=== PATIENT | female | born 1945 | race Caucasian/White ===

== ENCOUNTER 2021-11-18 10:46 | Inpatient (IN) | payer MEDICARE, OTHER ==
[2021-11-18] MEDS ORDERED: Sodium Chloride 0.9% 10 ML Syringe FLUSH PRN (10:48)
[2021-11-18] MEDS ORDERED: Sodium Chloride 0.9% 2.5 ML Syringe FLUSH PRN (10:48)
[2021-11-18] MEDS ORDERED: Sodium Chloride 0.9% 500 ML IV SCH (11:00)
[2021-11-18 12:18] LABS: BLOOD UREA NITROGEN,BUN 64 mg/dL (7.0-18.0); CARBON DIOXIDE,CO2 40.9 mmol/L (21.0-32.0); CHLORIDE,CL 100 mmol/L (98-107); GLUCOSE RANDOM 185 mg/dL (74-106); POTASSIUM,K 3.8 mmol/L (3.5-5.1); SODIUM,NA 143 mmol/L (136-145)
[2021-11-18 12:19] LABS: ESTIMATED GFR 52 mL/min (>60)
[2021-11-18] MEDS ORDERED: Glucagon,Human Recombinant 1 MG Vial IM PRN (17:23)
[2021-11-18] MEDS ORDERED: Magnesium Hydroxide 400 MG/5 ML Susp 30 ML Cup PO PRN (17:23)
[2021-11-18] MEDS ORDERED: 50% Dextrose in Water 50 ML Syringe IVPUSH PRN (17:23)
[2021-11-18] MEDS ORDERED: Levofloxacin/Dextrose 5%-Water 750 MG in Premix Bag 1 BAG IV SCH (17:30)
[2021-11-18] MEDS: Aspirin 325 MG Tab PO SCH (18:20)
[2021-11-18] MEDS: Levofloxacin/Dextrose 5%-Water 500 MG in Premix Bag 1 BAG IV SCH (19:44)
[2021-11-18] MEDS: atorvaSTATin 10 MG Tab PO SCH (21:17)
[2021-11-18] MEDS: Gabapentin 300 MG Cap PO SCH (21:17)
[2021-11-18] MEDS: Furosemide 80 MG Tab PO SCH (21:18)
[2021-11-18] MEDS: Pramipexole 0.25 MG Tab PO SCH (22:15)
[2021-11-19 06:45] LABS: HEMOGLOBIN A1C 7.4 %
[2021-11-19] MEDS: Levothyroxine 100 MCG Tab PO SCH (06:46)
[2021-11-19] MEDS: Gabapentin 300 MG Cap PO SCH ×3 (06:46→21:26)
[2021-11-19 06:53] LABS: CARBON DIOXIDE,CO2 43.7 mmol/L (21.0-32.0); POTASSIUM,K 3.2 mmol/L (3.5-5.1)
[2021-11-19] MEDS: Insulin Aspart 100 Units/ML 3 ML Pen SUBCUT SCH ×3 (06:54→16:20)
[2021-11-19] MEDS ORDERED: Potassium Chloride 20 MEQ Packet PO SCH (09:00)
[2021-11-19] MEDS: Aspirin 325 MG Tab PO SCH (09:25)
[2021-11-19] MEDS: Furosemide 80 MG Tab PO SCH (09:26)
[2021-11-19] MEDS: Citalopram 20 MG Tab PO SCH (09:26)
[2021-11-19] MEDS: Potassium Chloride 10% 20 MEQ/15 ML Soln 30 ML UD Cup PO SCH (09:26)
[2021-11-19] MEDS ORDERED: Potassium Chloride 20 MEQ Tab.ER PO ONE (12:09)
[2021-11-19] MEDS: Levofloxacin/Dextrose 5%-Water 500 MG in Premix Bag 1 BAG IV SCH (17:45)
[2021-11-19] MEDS: atorvaSTATin 10 MG Tab PO SCH (21:24)
[2021-11-19] MEDS: Pramipexole 0.25 MG Tab PO SCH (21:25)
[2021-11-20] MEDS ORDERED: Acetaminophen 325 MG Tab PO PRN (05:35)
[2021-11-20 05:53] LABS: POTASSIUM,K 3.7 mmol/L (3.5-5.1)
[2021-11-20] MEDS: Gabapentin 300 MG Cap PO SCH ×3 (06:26→21:04)
[2021-11-20] MEDS: Levothyroxine 100 MCG Tab PO SCH ×2 (06:26→08:04)
[2021-11-20] MEDS: Insulin Aspart 100 Units/ML 3 ML Pen SUBCUT SCH ×3 (07:06→16:35)
[2021-11-20] MEDS: Potassium Chloride 10% 20 MEQ/15 ML Soln 30 ML UD Cup PO SCH (08:01)
[2021-11-20] MEDS: Metolazone 5 MG Tab PO SCH (08:02)
[2021-11-20] MEDS: Aspirin 325 MG Tab PO SCH (08:02)
[2021-11-20] MEDS: Citalopram 20 MG Tab PO SCH (08:03)
[2021-11-20] MEDS: Levofloxacin/Dextrose 5%-Water 500 MG in Premix Bag 1 BAG IV SCH (17:52)
[2021-11-20] MEDS: Pramipexole 0.25 MG Tab PO SCH (21:04)
[2021-11-20] MEDS: atorvaSTATin 10 MG Tab PO SCH (21:05)
[2021-11-21] MEDS: Gabapentin 300 MG Cap PO SCH ×3 (06:47→21:17)
[2021-11-21] MEDS: Levothyroxine 100 MCG Tab PO SCH (06:47)
[2021-11-21] MEDS: Insulin Aspart 100 Units/ML 3 ML Pen SUBCUT SCH ×3 (06:51→16:57)
[2021-11-21 07:03] LABS: CARBON DIOXIDE,CO2 39.4 mmol/L (21.0-32.0); POTASSIUM,K 3.9 mmol/L (3.5-5.1)
[2021-11-21] MEDS: Potassium Chloride 10% 20 MEQ/15 ML Soln 30 ML UD Cup PO SCH (09:27)
[2021-11-21] MEDS: Aspirin 325 MG Tab PO SCH (09:27)
[2021-11-21] MEDS: Citalopram 20 MG Tab PO SCH (09:27)
[2021-11-21] MEDS: Lidocaine 5% 700 MG Patch TRDERM SCH (09:37)
[2021-11-21] MEDS: Acetaminophen 325 MG Tab PO SCH ×2 (14:12→21:18)
[2021-11-21] MEDS: Heparin Sodium 5,000 Units/ML Vial SUBCUT SCH (14:12)
[2021-11-21] MEDS: Furosemide 80 MG Tab PO SCH (15:05)
[2021-11-21] MEDS: Levofloxacin/Dextrose 5%-Water 500 MG in Premix Bag 1 BAG IV SCH (18:05)
[2021-11-21] MEDS: atorvaSTATin 10 MG Tab PO SCH (21:15)
[2021-11-21] MEDS: Pramipexole 0.25 MG Tab PO SCH (21:16)
[2021-11-22] MEDS: Heparin Sodium 5,000 Units/ML Vial SUBCUT SCH ×2 (00:37→13:03)
[2021-11-22 06:15] LABS: CARBON DIOXIDE,CO2 39.7 mmol/L (21.0-32.0); POTASSIUM,K 3.6 mmol/L (3.5-5.1)
[2021-11-22] MEDS: Gabapentin 300 MG Cap PO SCH ×3 (06:35→21:21)
[2021-11-22] MEDS: Acetaminophen 325 MG Tab PO SCH ×3 (06:35→21:24)
[2021-11-22] MEDS: Levothyroxine 100 MCG Tab PO SCH (06:36)
[2021-11-22] MEDS: Insulin Aspart 100 Units/ML 3 ML Pen SUBCUT SCH ×3 (07:36→18:03)
[2021-11-22] MEDS: Aspirin 325 MG Tab.EC PO SCH (08:18)
[2021-11-22] MEDS: Ferrous Sulfate 325 MG Tab PO SCH (08:19)
[2021-11-22] MEDS: Citalopram 20 MG Tab PO SCH (08:19)
[2021-11-22] MEDS: Potassium Chloride 10% 20 MEQ/15 ML Soln 30 ML UD Cup PO SCH (08:20)
[2021-11-22] MEDS: Lidocaine 5% 700 MG Patch TRDERM SCH (08:30)
[2021-11-22] MEDS: Furosemide 80 MG Tab PO SCH (11:06)
[2021-11-22] MEDS: Metolazone 5 MG Tab PO SCH (11:07)
[2021-11-22] MEDS: Nystatin Topical Powder 15 GM Bottle TOP SCH ×3 (11:58→18:41)
[2021-11-22] MEDS: Levofloxacin/Dextrose 5%-Water 500 MG in Premix Bag 1 BAG IV SCH (18:42)
[2021-11-22] MEDS: atorvaSTATin 10 MG Tab PO SCH (21:22)
[2021-11-22] MEDS: Pramipexole 0.25 MG Tab PO SCH (21:23)
[2021-11-23] MEDS: Nystatin Topical Powder 15 GM Bottle TOP SCH ×4 (00:04→17:30)
[2021-11-23] MEDS: Heparin Sodium 5,000 Units/ML Vial SUBCUT SCH ×2 (00:04→12:55)
[2021-11-23] MEDS: Gabapentin 300 MG Cap PO SCH ×3 (05:58→21:37)
[2021-11-23] MEDS: Levothyroxine 100 MCG Tab PO SCH ×2 (05:59→06:35)
[2021-11-23] MEDS: Acetaminophen 325 MG Tab PO SCH ×3 (05:59→21:40)
[2021-11-23] MEDS: Insulin Aspart 100 Units/ML 3 ML Pen SUBCUT SCH ×3 (06:35→17:30)
[2021-11-23 07:27] LABS: CARBON DIOXIDE,CO2 38.2 mmol/L (21.0-32.0); POTASSIUM,K 3.6 mmol/L (3.5-5.1)
[2021-11-23] MEDS: Citalopram 20 MG Tab PO SCH (09:13)
[2021-11-23] MEDS: Ferrous Sulfate 325 MG Tab PO SCH (09:13)
[2021-11-23] MEDS: Aspirin 325 MG Tab.EC PO SCH (09:13)
[2021-11-23] MEDS: Potassium Chloride 10% 20 MEQ/15 ML Soln 30 ML UD Cup PO SCH (09:13)
[2021-11-23] MEDS: Febuxostat [Febuxostat] 40 MG Tablet PO SCH (09:18)
[2021-11-23] MEDS: Lidocaine 5% 700 MG Patch TRDERM SCH (09:19)
[2021-11-23] MEDS: atorvaSTATin 10 MG Tab PO SCH (21:41)
[2021-11-23] MEDS: Pramipexole 0.25 MG Tab PO SCH (21:42)
[2021-11-24] MEDS: Heparin Sodium 5,000 Units/ML Vial SUBCUT SCH ×2 (00:11→12:06)
[2021-11-24] MEDS: Nystatin Topical Powder 15 GM Bottle TOP SCH ×4 (00:18→19:10)
[2021-11-24] MEDS: Gabapentin 300 MG Cap PO SCH ×3 (06:24→21:13)
[2021-11-24] MEDS: Acetaminophen 325 MG Tab PO SCH ×3 (06:25→21:12)
[2021-11-24 06:28] LABS: CARBON DIOXIDE,CO2 39.7 mmol/L (21.0-32.0)
[2021-11-24] MEDS: Levothyroxine 100 MCG Tab PO SCH (06:31)
[2021-11-24] MEDS: Insulin Aspart 100 Units/ML 3 ML Pen SUBCUT SCH ×3 (06:52→19:11)
[2021-11-24] MEDS: Ferrous Sulfate 325 MG Tab PO SCH (08:35)
[2021-11-24] MEDS: Citalopram 20 MG Tab PO SCH (08:35)
[2021-11-24] MEDS: Potassium Chloride 10% 20 MEQ/15 ML Soln 30 ML UD Cup PO SCH (08:36)
[2021-11-24] MEDS: Aspirin 325 MG Tab.EC PO SCH (08:36)
[2021-11-24] MEDS: Lidocaine 5% 700 MG Patch TRDERM SCH (08:39)
[2021-11-24] MEDS: Febuxostat [Febuxostat] 40 MG Tablet PO SCH ×2 (08:40→13:09)
[2021-11-24] MEDS: predniSONE 20 MG Tab PO SCH (12:59)
[2021-11-24] MEDS: atorvaSTATin 10 MG Tab PO SCH (21:14)
[2021-11-24] MEDS: Pramipexole 0.25 MG Tab PO SCH (21:15)
[2021-11-25] MEDS: Heparin Sodium 5,000 Units/ML Vial SUBCUT SCH ×2 (00:10→13:10)
[2021-11-25] MEDS: Nystatin Topical Powder 15 GM Bottle TOP SCH ×4 (00:11→17:40)
[2021-11-25] MEDS: Gabapentin 300 MG Cap PO SCH ×3 (06:20→22:22)
[2021-11-25] MEDS: Acetaminophen 325 MG Tab PO SCH ×3 (06:21→22:23)
[2021-11-25] MEDS: Levothyroxine 100 MCG Tab PO SCH ×2 (06:23→06:47)
[2021-11-25] MEDS: Insulin Aspart 100 Units/ML 3 ML Pen SUBCUT SCH ×3 (08:09→17:40)
[2021-11-25] MEDS: predniSONE 20 MG Tab PO SCH (08:10)
[2021-11-25] MEDS: Potassium Chloride 10% 20 MEQ/15 ML Soln 30 ML UD Cup PO SCH (09:20)
[2021-11-25] MEDS: Aspirin 325 MG Tab.EC PO SCH (09:22)
[2021-11-25] MEDS: Citalopram 20 MG Tab PO SCH (09:22)
[2021-11-25] MEDS: Lidocaine 5% 700 MG Patch TRDERM SCH (09:23)
[2021-11-25] MEDS: Ferrous Sulfate 325 MG Tab PO SCH (09:23)
[2021-11-25] MEDS: Febuxostat [Febuxostat] 40 MG Tablet PO SCH (09:23)
[2021-11-25 12:49] LABS: POTASSIUM,K 4.9 mmol/L (3.5-5.1)
[2021-11-25] MEDS: atorvaSTATin 10 MG Tab PO SCH (22:24)
[2021-11-25] MEDS: Pramipexole 0.25 MG Tab PO SCH (22:25)
[2021-11-26] MEDS: cloNIDine 0.1 MG Tab PO SCH ×3 (00:30→21:15)
[2021-11-26] MEDS: Nystatin Topical Powder 15 GM Bottle TOP SCH ×4 (00:30→17:32)
[2021-11-26] MEDS: Heparin Sodium 5,000 Units/ML Vial SUBCUT SCH ×2 (00:30→13:42)
[2021-11-26] MEDS: Acetaminophen 325 MG Tab PO SCH ×3 (06:22→21:13)
[2021-11-26] MEDS: Gabapentin 300 MG Cap PO SCH ×3 (06:23→21:12)
[2021-11-26] MEDS: Levothyroxine 100 MCG Tab PO SCH ×2 (06:25→08:07)
[2021-11-26 07:24] LABS: POTASSIUM,K 4.6 mmol/L (3.5-5.1)
[2021-11-26] MEDS: Insulin Aspart 100 Units/ML 3 ML Pen SUBCUT SCH ×3 (07:34→17:31)
[2021-11-26] MEDS: Potassium Chloride 10% 20 MEQ/15 ML Soln 30 ML UD Cup PO SCH (08:07)
[2021-11-26] MEDS: Citalopram 20 MG Tab PO SCH (08:08)
[2021-11-26] MEDS: Aspirin 325 MG Tab.EC PO SCH (08:08)
[2021-11-26] MEDS: Ferrous Sulfate 325 MG Tab PO SCH (08:08)
[2021-11-26] MEDS: predniSONE 20 MG Tab PO SCH (08:08)
[2021-11-26] MEDS: Febuxostat [Febuxostat] 40 MG Tablet PO SCH (08:10)
[2021-11-26] MEDS: Lidocaine 5% 700 MG Patch TRDERM SCH (09:51)
[2021-11-26] MEDS: atorvaSTATin 10 MG Tab PO SCH (21:15)
[2021-11-26] MEDS: Pramipexole 0.25 MG Tab PO SCH (21:20)
[2021-11-27] MEDS: Heparin Sodium 5,000 Units/ML Vial SUBCUT SCH ×3 (00:39→23:53)
[2021-11-27] MEDS: Nystatin Topical Powder 15 GM Bottle TOP SCH ×5 (00:39→23:53)
[2021-11-27] MEDS: Acetaminophen 325 MG Tab PO SCH ×3 (06:10→22:34)
[2021-11-27] MEDS: Gabapentin 300 MG Cap PO SCH ×3 (06:10→22:33)
[2021-11-27] MEDS: Levothyroxine 100 MCG Tab PO SCH ×2 (06:19→07:39)
[2021-11-27 07:11] LABS: CARBON DIOXIDE,CO2 40.2 mmol/L (21.0-32.0); POTASSIUM,K 4.9 mmol/L (3.5-5.1)
[2021-11-27] MEDS: Insulin Aspart 100 Units/ML 3 ML Pen SUBCUT SCH ×3 (07:39→17:21)
[2021-11-27] MEDS: predniSONE 20 MG Tab PO SCH (09:00)
[2021-11-27] MEDS: Aspirin 325 MG Tab.EC PO SCH (09:01)
[2021-11-27] MEDS: Ferrous Sulfate 325 MG Tab PO SCH (09:01)
[2021-11-27] MEDS: Citalopram 20 MG Tab PO SCH (09:01)
[2021-11-27] MEDS: cloNIDine 0.1 MG Tab PO SCH ×2 (09:01→22:33)
[2021-11-27] MEDS: Febuxostat [Febuxostat] 40 MG Tablet PO SCH (09:02)
[2021-11-27] MEDS: Potassium Chloride 10% 20 MEQ/15 ML Soln 30 ML UD Cup PO SCH (09:02)
[2021-11-27] MEDS: Lidocaine 5% 700 MG Patch TRDERM SCH (09:03)
[2021-11-27] MEDS: Calcium Carbonate/Vitamin D3 1500 MG-400 Units Tab PO SCH (09:25)
[2021-11-27] MEDS: Furosemide 40 MG Tab PO SCH (12:01)
[2021-11-27] MEDS: Pramipexole 0.25 MG Tab PO SCH (22:34)
[2021-11-27] MEDS: atorvaSTATin 10 MG Tab PO SCH (22:34)
[2021-11-27] MEDS: Carboxymethylcellulose Sodium 0.5% Ophth Soln 0.4 ML UD Box of 30 EYERT SCH (23:53)
[2021-11-28] MEDS: Levothyroxine 100 MCG Tab PO SCH (06:48)
[2021-11-28] MEDS: Acetaminophen 325 MG Tab PO SCH (06:48)
[2021-11-28] MEDS: Carboxymethylcellulose Sodium 0.5% Ophth Soln 0.4 ML UD Box of 30 EYERT SCH (06:48)
[2021-11-28] MEDS: Gabapentin 300 MG Cap PO SCH (06:49)
[2021-11-28] MEDS: Nystatin Topical Powder 15 GM Bottle TOP SCH (06:49)
[2021-11-28] MEDS: Insulin Aspart 100 Units/ML 3 ML Pen SUBCUT SCH (06:50)
[2021-11-28] MEDS ORDERED: RALOXIFENE HCL 60 MG PO SCH (09:00)
[2021-11-28] MEDS: cloNIDine 0.1 MG Tab PO SCH (09:08)
[2021-11-28] MEDS: Furosemide 40 MG Tab PO SCH (09:08)
[2021-11-28] MEDS: Citalopram 20 MG Tab PO SCH (09:08)
[2021-11-28] MEDS: Ferrous Sulfate 325 MG Tab PO SCH (09:08)
[2021-11-28] MEDS: predniSONE 20 MG Tab PO SCH (09:08)
[2021-11-28] MEDS: Potassium Chloride 10% 20 MEQ/15 ML Soln 30 ML UD Cup PO SCH (09:08)
[2021-11-28] MEDS: Febuxostat [Febuxostat] 40 MG Tablet PO SCH (09:08)
[2021-11-28] MEDS: Aspirin 325 MG Tab.EC PO SCH (09:09)
[2021-11-28] MEDS: Calcium Carbonate/Vitamin D3 1500 MG-400 Units Tab PO SCH (09:09)
[2021-11-28] MEDS: Lidocaine 5% 700 MG Patch TRDERM SCH (12:04)
== END 2021-11-28 11:45 | DRG 556 ==
LOC: MW.ED 10:46 → MW.MS 15:08
PROVIDERS: ADMIT Internal Medicine; ATTEND Internal Medicine
DX: I63.9 Cerebral infarction, unspecified (principal); R29.898 Other symptoms and signs involving the musculoskeletal system; N30.00 Acute cystitis without hematuria; J96.90 Respiratory failure, unspecified, unspecified whether with hypoxia or hypercapnia; J96.12 Chronic respiratory failure with hypercapnia; E87.0 Hyperosmolality and hypernatremia; N17.9 Acute kidney failure, unspecified; G81.91 Hemiplegia, unspecified affecting right dominant side; I50.30 Unspecified diastolic (congestive) heart failure; Z66 Do not resuscitate; Z20.822 Contact with and (suspected) exposure to COVID-19; E11.42 Type 2 diabetes mellitus with diabetic polyneuropathy; G47.33 Obstructive sleep apnea (adult) (pediatric); Z99.81 Dependence on supplemental oxygen; M25.512 Pain in left shoulder; M10.9 Gout, unspecified; J44.9 Chronic obstructive pulmonary disease, unspecified; B96.20 Unspecified Escherichia coli [E. coli] as the cause of diseases classified elsewhere; R26.81 Unsteadiness on feet; Z74.1 Need for assistance with personal care; R26.89 Other abnormalities of gait and mobility; E11.610 Type 2 diabetes mellitus with diabetic neuropathic arthropathy; I11.0 Hypertensive heart disease with heart failure; H11.31 Conjunctival hemorrhage, right eye; M19.90 Unspecified osteoarthritis, unspecified site; M81.0 Age-related osteoporosis without current pathological fracture; Z79.82 Long term (current) use of aspirin; Z79.890 Hormone replacement therapy; Z79.899 Other long term (current) drug therapy; Z88.0 Allergy status to penicillin; Z88.2 Allergy status to sulfonamides; Z88.1 Allergy status to other antibiotic agents; Z88.8 Allergy status to other drugs, medicaments and biological substances
CPT/HCPCS: 36415; 70450; 71045; 80053; 80307; 81001; 83735; 84484; 85025; 87086; 87088; 87186; 93005; 96360; 99285; J3490; J7040; U0002; 70544; 70544-26; 70547; 70547-26; 70551; 70551-26; 73120-26-LT; 73120-LT; 73502-26-RT; 73502-RT; 73700-26-RT; 73700-RT; 80048; 80061; 82947; 83036; 84100; 93010; 94660; 97110-GP; 97112-GP; 97163-GP; 97530-GP; A9270-GY; J1644; J1815-GY; J1956

== ENCOUNTER 2021-12-26 11:09 | Inpatient (IN) | payer MEDICARE, OTHER ==
[2021-12-26] MEDS ORDERED: Sodium Chloride 0.9% 10 ML Syringe FLUSH PRN (11:11)
[2021-12-26] MEDS ORDERED: Sodium Chloride 0.9% 2.5 ML Syringe FLUSH PRN (11:11)
[2021-12-26 12:11] LABS: CARBON DIOXIDE,CO2 33.8 mmol/L (21.0-32.0); POTASSIUM,K 5.5 mmol/L (3.5-5.1)
[2021-12-26] MEDS ORDERED: Furosemide 40 MG/4 ML VIAL IVPUSH ONE (12:52)
[2021-12-26] MEDS ORDERED: Carbamide Peroxide 6.5% Otic Soln 15 ML Bottle EARBOTH PRN (14:51)
[2021-12-26] MEDS ORDERED: Magnesium Hydroxide 400 MG/5 ML Susp 30 ML Cup PO PRN (14:51)
[2021-12-26] MEDS ORDERED: Carboxymethylcellulose Sodium 0.5% Ophth Soln 0.4 ML UD Box of 30 EYEBOTH PRN (14:51)
[2021-12-26] MEDS ORDERED: guaiFENesin 100 MG/5 ML Soln 5 ML UD Cup PO PRN (14:51)
[2021-12-26] MEDS ORDERED: Aluminum Hydroxide/Magnesium Hydroxide/Simethicone XS Susp 30 ML Cup PO PRN (14:51)
[2021-12-26] MEDS ORDERED: REMDESIVIR 200 MG in Sodium Chloride 0.9% 250 ML IV ONE (14:56)
[2021-12-26] MEDS ORDERED: Enoxaparin 40 MG/0.4 ML Syringe SUBCUT SCH (15:00)
[2021-12-26] MEDS ORDERED: Glucagon,Human Recombinant 1 MG Vial IM PRN (15:26)
[2021-12-26] MEDS ORDERED: 50% Dextrose in Water 50 ML Syringe IVPUSH PRN (15:26)
[2021-12-26] MEDS: Dexamethasone 4 MG Tab PO SCH (15:52)
[2021-12-26] MEDS: Enoxaparin 40 MG/0.4 ML Syringe SUBCUT SCH (15:52)
[2021-12-26] MEDS: Insulin Aspart 100 Units/ML 3 ML Pen SUBCUT SCH (17:21)
[2021-12-26] MEDS: cloNIDine 0.1 MG Tab PO SCH (20:17)
[2021-12-26] MEDS: Furosemide 40 MG/4 ML VIAL IVPUSH SCH (20:17)
[2021-12-26] MEDS: Pramipexole 0.25 MG Tab PO SCH (20:17)
[2021-12-26] MEDS: atorvaSTATin 10 MG Tab PO SCH (20:17)
[2021-12-26] MEDS: Acetaminophen 325 MG Tab PO SCH (21:56)
[2021-12-26] MEDS: Gabapentin 300 MG Cap PO SCH (21:56)
[2021-12-27] MEDS: Enoxaparin 40 MG/0.4 ML Syringe SUBCUT SCH ×2 (02:58→15:05)
[2021-12-27] MEDS: Gabapentin 300 MG Cap PO SCH ×2 (05:34→14:11)
[2021-12-27] MEDS: Acetaminophen 325 MG Tab PO SCH ×2 (05:34→14:12)
[2021-12-27] MEDS: Levothyroxine 100 MCG Tab PO SCH (06:32)
[2021-12-27 06:45] LABS: POTASSIUM,K 5.3 mmol/L (3.5-5.1)
[2021-12-27] MEDS: Furosemide 40 MG/4 ML VIAL IVPUSH SCH ×2 (08:24→14:13)
[2021-12-27] MEDS: Insulin Aspart 100 Units/ML 3 ML Pen SUBCUT SCH ×3 (08:24→17:47)
[2021-12-27] MEDS: Ferrous Sulfate 325 MG Tab PO SCH (08:25)
[2021-12-27] MEDS: Dexamethasone 4 MG Tab PO SCH (08:25)
[2021-12-27] MEDS: Lisinopril 10 MG Tab PO SCH (08:25)
[2021-12-27] MEDS: Citalopram 20 MG Tab PO SCH (08:25)
[2021-12-27] MEDS: cloNIDine 0.1 MG Tab PO SCH (08:25)
[2021-12-27] MEDS: Febuxostat [Febuxostat] 40 MG Tablet PO SCH (09:02)
[2021-12-27] MEDS: Nystatin Topical Powder 15 GM Bottle TOP SCH (10:53)
[2021-12-27] MEDS ORDERED: cloNIDine 0.1 MG Tab PO ONE (12:35)
[2021-12-27] MEDS: REMDESIVIR 100 MG in Sodium Chloride 0.9% 100 ML IV SCH (15:06)
[2021-12-28] MEDS: Enoxaparin 40 MG/0.4 ML Syringe SUBCUT SCH ×2 (03:03→15:20)
[2021-12-28] MEDS: Acetaminophen 325 MG Tab PO SCH ×4 (06:52→22:16)
[2021-12-28] MEDS: Gabapentin 300 MG Cap PO SCH ×4 (06:53→22:17)
[2021-12-28] MEDS: Levothyroxine 100 MCG Tab PO SCH (06:53)
[2021-12-28 06:55] LABS: CARBON DIOXIDE,CO2 37.3 mmol/L (21.0-32.0)
[2021-12-28] MEDS: Insulin Aspart 100 Units/ML 3 ML Pen SUBCUT SCH ×3 (07:22→17:45)
[2021-12-28] MEDS: Furosemide 40 MG/4 ML VIAL IVPUSH SCH ×2 (09:11→13:13)
[2021-12-28] MEDS: Dexamethasone 4 MG Tab PO SCH (09:11)
[2021-12-28] MEDS: Ferrous Sulfate 325 MG Tab PO SCH (09:12)
[2021-12-28] MEDS: cloNIDine 0.1 MG Tab PO SCH ×3 (09:13→22:14)
[2021-12-28] MEDS: Lisinopril 10 MG Tab PO SCH (09:13)
[2021-12-28] MEDS: Citalopram 20 MG Tab PO SCH (09:14)
[2021-12-28] MEDS: Nystatin Topical Powder 15 GM Bottle TOP SCH ×3 (09:19→22:17)
[2021-12-28] MEDS: atorvaSTATin 10 MG Tab PO SCH ×2 (10:03→22:14)
[2021-12-28] MEDS: Febuxostat [Febuxostat] 40 MG Tablet PO SCH (10:20)
[2021-12-28] MEDS: Pramipexole 0.25 MG Tab PO SCH ×2 (10:20→22:15)
[2021-12-28] MEDS: REMDESIVIR 100 MG in Sodium Chloride 0.9% 100 ML IV SCH (15:19)
[2021-12-29] MEDS: Enoxaparin 40 MG/0.4 ML Syringe SUBCUT SCH ×2 (04:49→15:10)
[2021-12-29] MEDS: Levothyroxine 100 MCG Tab PO SCH (06:55)
[2021-12-29] MEDS: Acetaminophen 325 MG Tab PO SCH ×3 (06:55→21:55)
[2021-12-29] MEDS: Gabapentin 300 MG Cap PO SCH ×3 (06:56→21:55)
[2021-12-29] MEDS: Insulin Aspart 100 Units/ML 3 ML Pen SUBCUT SCH ×3 (06:56→18:13)
[2021-12-29 07:12] LABS: CARBON DIOXIDE,CO2 38.4 mmol/L (21.0-32.0); POTASSIUM,K 4.4 mmol/L (3.5-5.1)
[2021-12-29] MEDS: Furosemide 40 MG/4 ML VIAL IVPUSH SCH ×2 (08:41→14:21)
[2021-12-29] MEDS: Lisinopril 10 MG Tab PO SCH (08:41)
[2021-12-29] MEDS: Dexamethasone 4 MG Tab PO SCH (08:41)
[2021-12-29] MEDS: cloNIDine 0.1 MG Tab PO SCH ×2 (08:41→20:42)
[2021-12-29] MEDS: Ferrous Sulfate 325 MG Tab PO SCH (08:41)
[2021-12-29] MEDS: Citalopram 20 MG Tab PO SCH (08:42)
[2021-12-29] MEDS: Nystatin Topical Powder 15 GM Bottle TOP SCH ×2 (08:48→20:43)
[2021-12-29] MEDS: Febuxostat [Febuxostat] 40 MG Tablet PO SCH (08:49)
[2021-12-29] MEDS ORDERED: Lisinopril 10 MG Tab PO ONE (10:12)
[2021-12-29] MEDS: REMDESIVIR 100 MG in Sodium Chloride 0.9% 100 ML IV SCH (14:21)
[2021-12-29] MEDS: atorvaSTATin 10 MG Tab PO SCH (20:37)
[2021-12-29] MEDS: Pramipexole 0.25 MG Tab PO SCH (20:37)
[2021-12-30] MEDS: Enoxaparin 40 MG/0.4 ML Syringe SUBCUT SCH ×2 (02:59→15:08)
[2021-12-30] MEDS: Gabapentin 300 MG Cap PO SCH ×3 (06:43→21:34)
[2021-12-30] MEDS: Acetaminophen 325 MG Tab PO SCH ×3 (06:43→21:34)
[2021-12-30] MEDS: Insulin Aspart 100 Units/ML 3 ML Pen SUBCUT SCH ×3 (06:44→17:36)
[2021-12-30] MEDS: Levothyroxine 100 MCG Tab PO SCH (06:44)
[2021-12-30 07:23] LABS: CARBON DIOXIDE,CO2 40.5 mmol/L (21.0-32.0); POTASSIUM,K 4.4 mmol/L (3.5-5.1)
[2021-12-30] MEDS: Citalopram 20 MG Tab PO SCH (09:03)
[2021-12-30] MEDS: Dexamethasone 4 MG Tab PO SCH (09:04)
[2021-12-30] MEDS: Ferrous Sulfate 325 MG Tab PO SCH (09:04)
[2021-12-30] MEDS: Lisinopril 10 MG Tab PO SCH (09:05)
[2021-12-30] MEDS: cloNIDine 0.1 MG Tab PO SCH ×2 (09:05→21:35)
[2021-12-30] MEDS: Furosemide 40 MG/4 ML VIAL IVPUSH SCH ×2 (09:06→14:27)
[2021-12-30] MEDS: Febuxostat [Febuxostat] 40 MG Tablet PO SCH (09:10)
[2021-12-30] MEDS: Nystatin Topical Powder 15 GM Bottle TOP SCH ×2 (09:11→21:39)
[2021-12-30] MEDS: REMDESIVIR 100 MG in Sodium Chloride 0.9% 100 ML IV SCH (15:08)
[2021-12-30] MEDS: Pramipexole 0.25 MG Tab PO SCH (21:35)
[2021-12-30] MEDS: atorvaSTATin 10 MG Tab PO SCH (21:36)
[2021-12-31] MEDS: Enoxaparin 40 MG/0.4 ML Syringe SUBCUT SCH ×2 (03:24→15:26)
[2021-12-31] MEDS: Acetaminophen 325 MG Tab PO SCH ×3 (06:29→21:36)
[2021-12-31] MEDS: Levothyroxine 100 MCG Tab PO SCH (06:29)
[2021-12-31] MEDS: Gabapentin 300 MG Cap PO SCH ×3 (06:30→21:35)
[2021-12-31] MEDS: Insulin Aspart 100 Units/ML 3 ML Pen SUBCUT SCH ×3 (06:39→17:28)
[2021-12-31 06:51] LABS: CARBON DIOXIDE,CO2 42.8 mmol/L (21.0-32.0); POTASSIUM,K 4.3 mmol/L (3.5-5.1)
[2021-12-31] MEDS: Dexamethasone 4 MG Tab PO SCH (08:33)
[2021-12-31] MEDS: cloNIDine 0.1 MG Tab PO SCH ×2 (08:34→21:35)
[2021-12-31] MEDS: Ferrous Sulfate 325 MG Tab PO SCH (08:35)
[2021-12-31] MEDS: Lisinopril 10 MG Tab PO SCH (08:35)
[2021-12-31] MEDS: Citalopram 20 MG Tab PO SCH (08:35)
[2021-12-31] MEDS: Furosemide 40 MG/4 ML VIAL IVPUSH SCH ×2 (08:36→14:18)
[2021-12-31] MEDS: Febuxostat [Febuxostat] 40 MG Tablet PO SCH (09:38)
[2021-12-31] MEDS ORDERED: Lisinopril 10 MG Tab PO ONE (10:32)
[2021-12-31] MEDS: Nystatin Topical Powder 15 GM Bottle TOP SCH ×2 (14:17→21:36)
[2021-12-31] MEDS: Pramipexole 0.25 MG Tab PO SCH (21:34)
[2021-12-31] MEDS: atorvaSTATin 10 MG Tab PO SCH (21:35)
[2022-01-01] MEDS: Enoxaparin 40 MG/0.4 ML Syringe SUBCUT SCH (03:08)
[2022-01-01] MEDS: Acetaminophen 325 MG Tab PO SCH (06:28)
[2022-01-01] MEDS: Gabapentin 300 MG Cap PO SCH (06:28)
[2022-01-01] MEDS: Levothyroxine 100 MCG Tab PO SCH (06:32)
[2022-01-01] MEDS: Insulin Aspart 100 Units/ML 3 ML Pen SUBCUT SCH ×2 (08:48→12:06)
[2022-01-01] MEDS: Dexamethasone 4 MG Tab PO SCH (08:50)
[2022-01-01] MEDS: Nystatin Topical Powder 15 GM Bottle TOP SCH (08:50)
[2022-01-01] MEDS: Citalopram 20 MG Tab PO SCH (08:50)
[2022-01-01] MEDS: Ferrous Sulfate 325 MG Tab PO SCH (08:50)
[2022-01-01] MEDS: cloNIDine 0.1 MG Tab PO SCH (08:51)
[2022-01-01] MEDS: Febuxostat [Febuxostat] 40 MG Tablet PO SCH (08:51)
[2022-01-01] MEDS ORDERED: Lisinopril 10 MG Tab PO SCH (09:00)
[2022-01-01] MEDS ORDERED: amLODIPine 5 MG Tab PO SCH (10:15)
== END 2022-01-01 12:30 | DRG 177 ==
LOC: MW.ED 11:09 → MW.MS 13:19
PROVIDERS: ADMIT Internal Medicine; ATTEND Internal Medicine
PROC: XW033E5 Introduction of Remdesivir Anti-infective into Peripheral Vein, Percutaneous Approach, New Technology Group 5 (ICD-10-PCS; principal; 2021-12-26)
PROC: 3E0DX3Z Introduction of Anti-inflammatory into Mouth and Pharynx, External Approach (ICD-10-PCS; 2021-12-26)
DX: U07.1 COVID-19 (principal); I50.9 Heart failure, unspecified; I11.0 Hypertensive heart disease with heart failure; J96.11 Chronic respiratory failure with hypoxia; I50.33 Acute on chronic diastolic (congestive) heart failure; J96.01 Acute respiratory failure with hypoxia; J12.82 Pneumonia due to coronavirus disease 2019; E11.9 Type 2 diabetes mellitus without complications; I13.0 Hypertensive heart and chronic kidney disease with heart failure and stage 1 through stage 4 chronic kidney disease, or unspecified chronic kidney disease; G47.33 Obstructive sleep apnea (adult) (pediatric); M10.9 Gout, unspecified; Z86.19 Personal history of other infectious and parasitic diseases; Z79.84 Long term (current) use of oral hypoglycemic drugs; Z88.1 Allergy status to other antibiotic agents; Z88.8 Allergy status to other drugs, medicaments and biological substances; Z99.81 Dependence on supplemental oxygen; Z79.890 Hormone replacement therapy; Z79.899 Other long term (current) drug therapy; Z88.0 Allergy status to penicillin; Z88.2 Allergy status to sulfonamides; H54.7 Unspecified visual loss; H04.123 Dry eye syndrome of bilateral lacrimal glands; E78.00 Pure hypercholesterolemia, unspecified; J44.9 Chronic obstructive pulmonary disease, unspecified; N18.9 Chronic kidney disease, unspecified; Z87.440 Personal history of urinary (tract) infections; M79.7 Fibromyalgia; M19.90 Unspecified osteoarthritis, unspecified site; M81.0 Age-related osteoporosis without current pathological fracture; G89.29 Other chronic pain; M75.42 Impingement syndrome of left shoulder; E11.42 Type 2 diabetes mellitus with diabetic polyneuropathy; G25.81 Restless legs syndrome; F41.9 Anxiety disorder, unspecified; F32.A Depression, unspecified; E03.9 Hypothyroidism, unspecified
CPT/HCPCS: 36415; 71045; 80053; 81003; 83880; 84484; 85025; 93005; 99285; U0002; 51701; 82947; 84443; 93010; 93306; 99222; 99232; 99233; 99239; A9270-GY; J1650; J1815-GY; J1940; J7050; J8540

== ENCOUNTER 2022-07-11 11:06 | Inpatient (IN) | payer MEDICARE, OTHER ==
[2022-07-11] MEDS ORDERED: Sodium Chloride 0.9% 2.5 ML Syringe FLUSH PRN ×2 (11:24→16:51)
[2022-07-11] MEDS ORDERED: Sodium Chloride 0.9% 10 ML Syringe FLUSH PRN ×2 (11:24→16:51)
[2022-07-11 13:01] LABS: CARBON DIOXIDE,CO2 36.6 mmol/L (21.0-32.0); POTASSIUM,K 4.6 mmol/L (3.5-5.1)
[2022-07-11] MEDS ORDERED: Furosemide 40 MG/4 ML VIAL IVPUSH ONE ×2 (14:19→15:21)
[2022-07-11 16:29] LABS: CORONAVIRUS COVID-19 NAA NEGATIVE (NEGATIVE); INFLUENZA A NAA NEGATIVE (NEGATIVE); INFLUENZA B NAA NEGATIVE (NEGATIVE); RESPIRATORY SYNCYTIAL VIR NAA NEGATIVE (NEGATIVE)
[2022-07-11] MEDS ORDERED: Pantoprazole 40 MG in Sodium Chloride 0.9% 10 ML IVPUSH ONE (16:51)
[2022-07-11] MEDS ORDERED: Albuterol/Ipratropium 3.0-0.5 MG/3 ML Neb Soln NEB PRN (16:51)
[2022-07-11] MEDS ORDERED: Ondansetron 4 MG/2 ML SDV IVPUSH PRN (16:51)
[2022-07-11] MEDS: Heparin Sodium 5,000 Units/ML Vial SUBCUT SCH (17:27)
[2022-07-11] MEDS ORDERED: Gabapentin 300 MG Cap PO ONE (21:29)
[2022-07-11] MEDS ORDERED: Pramipexole 0.25 MG Tab PO SCH (21:30)
[2022-07-11] MEDS: Ciprofloxacin in D5W 400 MG in Premix Bag 1 BAG IV SCH ×2 (22:39)
[2022-07-12 01:56] LABS: CARBON DIOXIDE,CO2 37.5 mmol/L (21.0-32.0); POTASSIUM,K 4.2 mmol/L (3.5-5.1)
[2022-07-12] MEDS: Heparin Sodium 5,000 Units/ML Vial SUBCUT SCH ×2 (04:08→17:06)
[2022-07-12 05:34] LABS: CARBON DIOXIDE,CO2 37.6 mmol/L (21.0-32.0); POTASSIUM,K 4.4 mmol/L (3.5-5.1)
[2022-07-12] MEDS: Levothyroxine 100 MCG Tab PO SCH (06:37)
[2022-07-12] MEDS: Furosemide 40 MG/4 ML VIAL IVPUSH SCH ×2 (07:48→14:31)
[2022-07-12] MEDS ORDERED: Magnesium Sulfate/Water 2 GM in Premix Bag 1 BAG IV ONE (08:10)
[2022-07-12] MEDS ORDERED: Carboxymethylcellulose Sodium 0.5% Ophth Soln 0.4 ML UD Box of 30 EYEBOTH PRN (08:30)
[2022-07-12] MEDS ORDERED: PRAMIPEXOLE DI HCL 1.5 MG PO SCH (09:00)
[2022-07-12] MEDS: Lisinopril 10 MG Tab PO SCH (09:15)
[2022-07-12] MEDS: Ferrous Sulfate 325 MG Tab PO SCH (09:15)
[2022-07-12] MEDS: Pramipexole 0.25 MG Tab PO SCH ×2 (09:15→22:09)
[2022-07-12] MEDS: amLODIPine 5 MG Tab PO SCH (09:15)
[2022-07-12] MEDS: Citalopram 20 MG Tab PO SCH (09:15)
[2022-07-12] MEDS: Ciprofloxacin in D5W 400 MG in Premix Bag 1 BAG IV SCH ×4 (11:29→22:25)
[2022-07-12] MEDS: Gabapentin 300 MG Cap PO SCH ×2 (14:31→22:09)
[2022-07-12] MEDS ORDERED: atorvaSTATin 10 MG Tab PO SCH (21:00)
[2022-07-13] MEDS ORDERED: Fluticasone NASAL Spray 16 GM Bottle NASBOTH ONE (02:00)
[2022-07-13] MEDS ORDERED: Sodium Chloride 0.65% Nasal Spray 45 ML Bottle NAS PRN (05:29)
[2022-07-13] MEDS: Gabapentin 300 MG Cap PO SCH (06:06)
[2022-07-13] MEDS: Levothyroxine 100 MCG Tab PO SCH ×2 (06:06→07:39)
[2022-07-13] MEDS: Heparin Sodium 5,000 Units/ML Vial SUBCUT SCH (06:06)
[2022-07-13 07:32] LABS: CARBON DIOXIDE,CO2 38.3 mmol/L (21.0-32.0)
[2022-07-13] MEDS: Furosemide 40 MG/4 ML VIAL IVPUSH SCH (08:13)
[2022-07-13] MEDS ORDERED: Fluticasone NASAL Spray 16 GM Bottle NASBOTH SCH (09:00)
[2022-07-13] MEDS: amLODIPine 5 MG Tab PO SCH (09:25)
[2022-07-13] MEDS: Citalopram 20 MG Tab PO SCH (09:25)
[2022-07-13] MEDS: Lisinopril 10 MG Tab PO SCH (09:26)
[2022-07-13] MEDS: Ferrous Sulfate 325 MG Tab PO SCH (09:26)
[2022-07-13] MEDS ORDERED: Lisinopril 10 MG Tab ONE (09:31)
[2022-07-13] MEDS: Pramipexole 0.25 MG Tab PO SCH (09:36)
[2022-07-13] MEDS: Ciprofloxacin in D5W 400 MG in Premix Bag 1 BAG IV SCH ×2 (10:14)
== END 2022-07-13 13:15 | DRG 291 ==
LOC: MW.ED 11:06 → MW.ICU 15:56 → MW.MS 07-12 11:17
PROVIDERS: ADMIT Internal Medicine; ATTEND Internal Medicine
DX: I13.0 Hypertensive heart and chronic kidney disease with heart failure and stage 1 through stage 4 chronic kidney disease, or unspecified chronic kidney disease (principal); E87.0 Hyperosmolality and hypernatremia; E87.8 Other disorders of electrolyte and fluid balance, not elsewhere classified; I50.33 Acute on chronic diastolic (congestive) heart failure; J44.9 Chronic obstructive pulmonary disease, unspecified; J96.21 Acute and chronic respiratory failure with hypoxia; I10 Essential (primary) hypertension; E11.40 Type 2 diabetes mellitus with diabetic neuropathy, unspecified; E03.9 Hypothyroidism, unspecified; J96.22 Acute and chronic respiratory failure with hypercapnia; E66.01 Morbid (severe) obesity due to excess calories; N30.00 Acute cystitis without hematuria; E66.2 Morbid (severe) obesity with alveolar hypoventilation; Z68.41 Body mass index [BMI] 40.0-44.9, adult; E11.610 Type 2 diabetes mellitus with diabetic neuropathic arthropathy; Z87.440 Personal history of urinary (tract) infections; E11.42 Type 2 diabetes mellitus with diabetic polyneuropathy; Z20.822 Contact with and (suspected) exposure to COVID-19; G47.33 Obstructive sleep apnea (adult) (pediatric); I07.1 Rheumatic tricuspid insufficiency; H54.7 Unspecified visual loss; E78.00 Pure hypercholesterolemia, unspecified; M10.9 Gout, unspecified; M19.90 Unspecified osteoarthritis, unspecified site; N18.9 Chronic kidney disease, unspecified; E11.22 Type 2 diabetes mellitus with diabetic chronic kidney disease; F41.9 Anxiety disorder, unspecified; F32.A Depression, unspecified; G25.81 Restless legs syndrome; M79.7 Fibromyalgia; M81.0 Age-related osteoporosis without current pathological fracture; B96.20 Unspecified Escherichia coli [E. coli] as the cause of diseases classified elsewhere; Z99.81 Dependence on supplemental oxygen; Z88.0 Allergy status to penicillin; Z88.2 Allergy status to sulfonamides; Z88.8 Allergy status to other drugs, medicaments and biological substances; Z79.890 Hormone replacement therapy; Z79.899 Other long term (current) drug therapy
CPT/HCPCS: 0241U; 36415; 36600; 51703; 71045; 80048; 80053; 81001; 82803; 82947; 83605; 83735; 83880; 84439; 84443; 84484; 85025; 87086; 87088; 87186; 94660; 96374; 96375; 99285; 93010; A9270-GY; C9113; J0744; J1644; J1940; J3475; J3490; U0002

== ENCOUNTER 2022-08-14 13:27 | Inpatient (IN) | payer MEDICARE, OTHER ==
[2022-08-14] MEDS ORDERED: Ipratropium 0.02% 0.5 MG/2.5 ML Neb Soln NEB ONE (13:43)
[2022-08-14] MEDS ORDERED: Albuterol 0.083% 2.5 MG/3 ML Neb Soln NEB ONE (13:43)
[2022-08-14 14:03] LABS: CARBON DIOXIDE,CO2 36.5 mmol/L (21.0-32.0); POTASSIUM,K 4.7 mmol/L (3.5-5.1)
[2022-08-14] MEDS: Levofloxacin/Dextrose 5%-Water 750 MG in Premix Bag 1 BAG IV SCH (17:23)
[2022-08-14] MEDS ORDERED: Albuterol 0.083% 2.5 MG/3 ML Neb Soln ONE (19:42)
[2022-08-14] MEDS ORDERED: Ipratropium 0.02% 0.5 MG/2.5 ML Neb Soln ONE (19:42)
[2022-08-14] MEDS ORDERED: Albuterol/Ipratropium 3.0-0.5 MG/3 ML Neb Soln NEB PRN (19:53)
[2022-08-14] MEDS ORDERED: Furosemide 40 MG/4 ML VIAL IVPUSH ONE (20:06)
[2022-08-14] MEDS: Enoxaparin 40 MG/0.4 ML Syringe SUBCUT SCH (22:32)
[2022-08-15] MEDS: Albuterol 0.083% 2.5 MG/3 ML Neb Soln INH PRN ×2 (01:18→18:58)
[2022-08-15] MEDS: Ipratropium 0.02% 0.5 MG/2.5 ML Neb Soln INH PRN ×2 (01:18→18:58)
[2022-08-15] MEDS: Acetylcysteine 20% 200 MG/ML 4 ML Nebulizer Soln SDV NEB PRN (05:00)
[2022-08-15 06:25] LABS: CARBON DIOXIDE,CO2 37.9 mmol/L (21.0-32.0); POTASSIUM,K 4.4 mmol/L (3.5-5.1)
[2022-08-15] MEDS: Levothyroxine 100 MCG Tab PO SCH (07:59)
[2022-08-15] MEDS: Furosemide 40 MG/4 ML VIAL IVPUSH SCH ×2 (10:48→14:33)
[2022-08-15] MEDS: Lisinopril 10 MG Tab PO SCH (14:34)
[2022-08-15] MEDS: amLODIPine 5 MG Tab PO SCH (14:35)
[2022-08-15] MEDS: Citalopram 20 MG Tab PO SCH (14:35)
[2022-08-15] MEDS ORDERED: Levofloxacin/Dextrose 5%-Water 750 MG in Premix Bag 1 BAG IV SCH (16:00)
[2022-08-15] MEDS: Levofloxacin/Dextrose 5%-Water 750 MG in Premix Bag 1 BAG IV SCH (16:42)
[2022-08-15] MEDS: Pramipexole 0.25 MG Tab PO SCH (21:11)
[2022-08-15] MEDS: atorvaSTATin 10 MG Tab PO SCH (21:11)
[2022-08-15] MEDS: Enoxaparin 40 MG/0.4 ML Syringe SUBCUT SCH (21:11)
[2022-08-15] MEDS: Acetaminophen 325 MG Tab PO PRN (22:07)
[2022-08-15] MEDS: Ipratropium 0.02% 0.5 MG/2.5 ML Neb Soln NEB SCH (23:42)
[2022-08-15] MEDS: Albuterol 0.083% 2.5 MG/3 ML Neb Soln NEB SCH (23:44)
[2022-08-16] MEDS: Albuterol 0.083% 2.5 MG/3 ML Neb Soln NEB SCH ×4 (07:00→23:53)
[2022-08-16] MEDS: Ipratropium 0.02% 0.5 MG/2.5 ML Neb Soln NEB SCH ×4 (07:00→23:53)
[2022-08-16] MEDS: Levothyroxine 100 MCG Tab PO SCH (07:02)
[2022-08-16] MEDS: Acetaminophen 325 MG Tab PO PRN ×3 (07:02→20:30)
[2022-08-16 07:26] LABS: CARBON DIOXIDE,CO2 37.7 mmol/L (21.0-32.0); POTASSIUM,K 4.1 mmol/L (3.5-5.1)
[2022-08-16] MEDS: Furosemide 40 MG/4 ML VIAL IVPUSH SCH ×2 (08:20→14:14)
[2022-08-16] MEDS: Pramipexole 0.25 MG Tab PO SCH ×2 (08:21→20:30)
[2022-08-16] MEDS: Lisinopril 10 MG Tab PO SCH (08:21)
[2022-08-16] MEDS: amLODIPine 5 MG Tab PO SCH (08:22)
[2022-08-16] MEDS: Citalopram 20 MG Tab PO SCH (08:22)
[2022-08-16] MEDS: Cetirizine 10 MG Tab PO SCH (08:22)
[2022-08-16] MEDS: Febuxostat [Febuxostat] 40 MG Tablet PO SCH (08:24)
[2022-08-16] MEDS ORDERED: Magnesium Sulfate/Water 2 GM in Premix Bag 1 BAG IV ONE (08:28)
[2022-08-16] MEDS: Levofloxacin/Dextrose 5%-Water 750 MG in Premix Bag 1 BAG IV SCH (16:22)
[2022-08-16] MEDS: atorvaSTATin 10 MG Tab PO SCH (20:30)
[2022-08-16] MEDS: Enoxaparin 40 MG/0.4 ML Syringe SUBCUT SCH (20:31)
[2022-08-16] MEDS ORDERED: VANCOmycin 1.5 GM/300 ML 1.5 GM in Premix Bag 1 BAG IV SCH (21:00)
[2022-08-17] MEDS ORDERED: Acetylcysteine 20% 200 MG/ML 30 ML SDV PRN (02:00)
[2022-08-17 06:49] LABS: CARBON DIOXIDE,CO2 37.9 mmol/L (21.0-32.0); POTASSIUM,K 3.8 mmol/L (3.5-5.1)
[2022-08-17] MEDS: Ipratropium 0.02% 0.5 MG/2.5 ML Neb Soln NEB SCH ×3 (06:56→17:10)
[2022-08-17] MEDS: Albuterol 0.083% 2.5 MG/3 ML Neb Soln NEB SCH ×3 (06:56→17:10)
[2022-08-17] MEDS: Levothyroxine 100 MCG Tab PO SCH (06:57)
[2022-08-17] MEDS: Febuxostat [Febuxostat] 40 MG Tablet PO SCH (08:38)
[2022-08-17] MEDS: Furosemide 40 MG/4 ML VIAL IVPUSH SCH ×2 (08:48→13:50)
[2022-08-17] MEDS: Citalopram 20 MG Tab PO SCH (08:49)
[2022-08-17] MEDS: Cetirizine 10 MG Tab PO SCH (08:49)
[2022-08-17] MEDS: Pramipexole 0.25 MG Tab PO SCH ×2 (08:49→22:57)
[2022-08-17] MEDS: amLODIPine 5 MG Tab PO SCH (08:49)
[2022-08-17] MEDS: Lisinopril 10 MG Tab PO SCH (08:50)
[2022-08-17] MEDS: Acetaminophen 325 MG Tab PO PRN (08:57)
[2022-08-17] MEDS ORDERED: Acetylcysteine 20% 200 MG/ML 4 ML Nebulizer Soln SDV INH PRN ×2 (12:45)
[2022-08-17] MEDS: Sodium Chloride 0.9% Inhalation Soln 3 ML Neb INH SCH ×2 (12:54→18:35)
[2022-08-17] MEDS: Acetylcysteine 20% 200 MG/ML 4 ML Nebulizer Soln SDV NEB PRN (12:56)
[2022-08-17] MEDS: Enoxaparin 40 MG/0.4 ML Syringe SUBCUT SCH (13:47)
[2022-08-17] MEDS ORDERED: VANCOmycin 1.5 GM/300 ML 1.5 GM in Premix Bag 1 BAG IV SCH (15:15)
[2022-08-17] MEDS ORDERED: Acetaminophen 1,000 MG in Premix Bag 1 BAG IV ONE (17:24)
[2022-08-17] MEDS: Levofloxacin/Dextrose 5%-Water 750 MG in Premix Bag 1 BAG IV SCH (17:58)
[2022-08-17] MEDS: atorvaSTATin 10 MG Tab PO SCH (22:57)
[2022-08-18] MEDS ORDERED: Ketorolac 30 MG/ML SDV IVPUSH ONE (01:01)
[2022-08-18] MEDS: Sodium Chloride 0.9% Inhalation Soln 3 ML Neb INH SCH ×5 (02:08→23:06)
[2022-08-18] MEDS: Enoxaparin 40 MG/0.4 ML Syringe SUBCUT SCH ×2 (02:09→12:21)
[2022-08-18] MEDS: Ipratropium 0.02% 0.5 MG/2.5 ML Neb Soln NEB SCH ×5 (02:09→23:05)
[2022-08-18] MEDS: Albuterol 0.083% 2.5 MG/3 ML Neb Soln NEB SCH ×5 (02:09→23:07)
[2022-08-18] MEDS: Lidocaine 5% 700 MG Patch TOP SCH (02:10)
[2022-08-18] MEDS: Levothyroxine 100 MCG Tab PO SCH (06:56)
[2022-08-18] MEDS: Furosemide 40 MG/4 ML VIAL IVPUSH SCH ×2 (08:20→14:13)
[2022-08-18] MEDS: Lisinopril 10 MG Tab PO SCH (08:21)
[2022-08-18] MEDS: amLODIPine 5 MG Tab PO SCH (08:21)
[2022-08-18] MEDS: Cetirizine 10 MG Tab PO SCH (08:21)
[2022-08-18] MEDS: Citalopram 20 MG Tab PO SCH (08:22)
[2022-08-18] MEDS: Febuxostat [Febuxostat] 40 MG Tablet PO SCH (08:22)
[2022-08-18] MEDS: Pramipexole 0.25 MG Tab PO SCH ×2 (08:22→20:03)
[2022-08-18 12:08] LABS: CARBON DIOXIDE,CO2 38.2 mmol/L (21.0-32.0); POTASSIUM,K 4.1 mmol/L (3.5-5.1)
[2022-08-18] MEDS: Nystatin Topical Powder 15 GM Bottle TOP SCH ×2 (14:13→22:12)
[2022-08-18] MEDS: Levofloxacin/Dextrose 5%-Water 750 MG in Premix Bag 1 BAG IV SCH (17:10)
[2022-08-18] MEDS: atorvaSTATin 10 MG Tab PO SCH (20:03)
[2022-08-19] MEDS: Enoxaparin 40 MG/0.4 ML Syringe SUBCUT SCH ×3 (01:30→23:59)
[2022-08-19] MEDS: Lidocaine 5% 700 MG Patch TOP SCH (01:38)
[2022-08-19] MEDS: Ipratropium 0.02% 0.5 MG/2.5 ML Neb Soln NEB SCH ×4 (06:34→23:27)
[2022-08-19] MEDS: Sodium Chloride 0.9% Inhalation Soln 3 ML Neb INH SCH ×4 (06:34→23:27)
[2022-08-19] MEDS: Albuterol 0.083% 2.5 MG/3 ML Neb Soln NEB SCH ×4 (06:35→23:30)
[2022-08-19] MEDS: Levothyroxine 100 MCG Tab PO SCH (06:37)
[2022-08-19 06:47] LABS: CARBON DIOXIDE,CO2 36.6 mmol/L (21.0-32.0); POTASSIUM,K 3.8 mmol/L (3.5-5.1)
[2022-08-19] MEDS: Nystatin Topical Powder 15 GM Bottle TOP SCH ×3 (06:48→23:00)
[2022-08-19] MEDS: Furosemide 40 MG/4 ML VIAL IVPUSH SCH ×2 (08:57→14:17)
[2022-08-19] MEDS: amLODIPine 5 MG Tab PO SCH (08:59)
[2022-08-19] MEDS: Pramipexole 0.25 MG Tab PO SCH ×2 (09:00→20:35)
[2022-08-19] MEDS: Cetirizine 10 MG Tab PO SCH (09:00)
[2022-08-19] MEDS: Lisinopril 10 MG Tab PO SCH (09:00)
[2022-08-19] MEDS: Citalopram 20 MG Tab PO SCH (09:00)
[2022-08-19] MEDS: Febuxostat [Febuxostat] 40 MG Tablet PO SCH (09:02)
[2022-08-19] MEDS: Levofloxacin/Dextrose 5%-Water 750 MG in Premix Bag 1 BAG IV SCH (18:24)
[2022-08-19] MEDS: atorvaSTATin 10 MG Tab PO SCH (20:36)
[2022-08-20] MEDS: Lidocaine 5% 700 MG Patch TOP SCH (02:03)
[2022-08-20] MEDS: Levothyroxine 100 MCG Tab PO SCH (06:29)
[2022-08-20] MEDS: Nystatin Topical Powder 15 GM Bottle TOP SCH ×3 (06:29→21:25)
[2022-08-20 06:33] LABS: CARBON DIOXIDE,CO2 37.6 mmol/L (21.0-32.0); POTASSIUM,K 3.7 mmol/L (3.5-5.1)
[2022-08-20] MEDS: Ipratropium 0.02% 0.5 MG/2.5 ML Neb Soln NEB SCH ×4 (06:50→23:08)
[2022-08-20] MEDS: Sodium Chloride 0.9% Inhalation Soln 3 ML Neb INH SCH ×4 (06:50→23:09)
[2022-08-20] MEDS: Albuterol 0.083% 2.5 MG/3 ML Neb Soln NEB SCH ×4 (06:50→23:09)
[2022-08-20] MEDS: Pramipexole 0.25 MG Tab PO SCH ×2 (08:59→20:14)
[2022-08-20] MEDS: Furosemide 40 MG/4 ML VIAL IVPUSH SCH ×2 (08:59→13:20)
[2022-08-20] MEDS: Lisinopril 10 MG Tab PO SCH (09:00)
[2022-08-20] MEDS: Cetirizine 10 MG Tab PO SCH (09:00)
[2022-08-20] MEDS: amLODIPine 5 MG Tab PO SCH (09:00)
[2022-08-20] MEDS: Citalopram 20 MG Tab PO SCH (09:00)
[2022-08-20] MEDS: Febuxostat [Febuxostat] 40 MG Tablet PO SCH (09:07)
[2022-08-20] MEDS ORDERED: Diltiazem 25 MG/5 ML SDV IVPUSH PRN ×2 (15:30→16:00)
[2022-08-20] MEDS: atorvaSTATin 10 MG Tab PO SCH (20:13)
[2022-08-20] MEDS: Acetaminophen 325 MG Tab PO PRN (20:13)
[2022-08-20] MEDS: Carboxymethylcellulose Sodium 0.5% Ophth Soln 0.4 ML UD Box of 30 EYEBOTH PRN (20:15)
[2022-08-20] MEDS: Melatonin 3 MG Tab PO PRN (22:18)
[2022-08-20] MEDS: guaiFENesin 100 MG/5 ML Soln 5 ML UD Cup PO PRN (22:18)
[2022-08-21] MEDS: Lidocaine 5% 700 MG Patch TOP SCH (00:14)
[2022-08-21] MEDS: Acetaminophen 325 MG Tab PO PRN ×2 (04:22→21:32)
[2022-08-21] MEDS: guaiFENesin 100 MG/5 ML Soln 5 ML UD Cup PO PRN ×2 (04:22→21:32)
[2022-08-21] MEDS: Sodium Chloride 0.9% Inhalation Soln 3 ML Neb INH SCH ×3 (05:49→17:18)
[2022-08-21] MEDS: Albuterol 0.083% 2.5 MG/3 ML Neb Soln NEB SCH ×3 (05:49→17:18)
[2022-08-21] MEDS: Nystatin Topical Powder 15 GM Bottle TOP SCH ×3 (05:49→22:15)
[2022-08-21] MEDS: Ipratropium 0.02% 0.5 MG/2.5 ML Neb Soln NEB SCH ×3 (05:49→17:17)
[2022-08-21 06:07] LABS: BORDETELLA PARAPERT IS1001 Not Detected (Not Detected)
[2022-08-21] MEDS: Levothyroxine 100 MCG Tab PO SCH (06:31)
[2022-08-21 06:35] LABS: CARBON DIOXIDE,CO2 36.2 mmol/L (21.0-32.0); POTASSIUM,K 3.9 mmol/L (3.5-5.1)
[2022-08-21] MEDS: Carboxymethylcellulose Sodium 0.5% Ophth Soln 0.4 ML UD Box of 30 EYEBOTH PRN ×2 (08:05→21:34)
[2022-08-21] MEDS: Enoxaparin 40 MG/0.4 ML Syringe SUBCUT SCH (08:06)
[2022-08-21] MEDS: Furosemide 40 MG/4 ML VIAL IVPUSH SCH ×2 (08:06→14:04)
[2022-08-21] MEDS: Pramipexole 0.25 MG Tab PO SCH ×2 (08:06→21:32)
[2022-08-21] MEDS: amLODIPine 5 MG Tab PO SCH (08:07)
[2022-08-21] MEDS: Lisinopril 10 MG Tab PO SCH (08:07)
[2022-08-21] MEDS: Citalopram 20 MG Tab PO SCH (08:07)
[2022-08-21] MEDS: Cetirizine 10 MG Tab PO SCH (08:07)
[2022-08-21] MEDS: Febuxostat [Febuxostat] 40 MG Tablet PO SCH (08:08)
[2022-08-21] MEDS ORDERED: Levofloxacin/Dextrose 5%-Water 750 MG in Premix Bag 1 BAG IV SCH (17:00)
[2022-08-21] MEDS: Melatonin 3 MG Tab PO PRN (21:33)
[2022-08-21] MEDS: atorvaSTATin 10 MG Tab PO SCH (21:33)
[2022-08-22] MEDS: Albuterol 0.083% 2.5 MG/3 ML Neb Soln NEB SCH ×4 (00:16→17:16)
[2022-08-22] MEDS: Furosemide 40 MG/4 ML VIAL IVPUSH SCH ×3 (00:16→15:03)
[2022-08-22] MEDS: Ipratropium 0.02% 0.5 MG/2.5 ML Neb Soln NEB SCH ×4 (00:16→17:16)
[2022-08-22] MEDS: Sodium Chloride 0.9% Inhalation Soln 3 ML Neb INH SCH ×4 (00:17→17:16)
[2022-08-22] MEDS: Lidocaine 5% 700 MG Patch TOP SCH (00:17)
[2022-08-22] MEDS: Nystatin Topical Powder 15 GM Bottle TOP SCH ×2 (05:17→15:03)
[2022-08-22] MEDS: Levothyroxine 100 MCG Tab PO SCH (06:29)
[2022-08-22 07:23] LABS: CARBON DIOXIDE,CO2 33.7 mmol/L (21.0-32.0); POTASSIUM,K 3.8 mmol/L (3.5-5.1)
[2022-08-22] MEDS: amLODIPine 5 MG Tab PO SCH (09:00)
[2022-08-22] MEDS: Carboxymethylcellulose Sodium 0.5% Ophth Soln 0.4 ML UD Box of 30 EYEBOTH PRN (09:18)
[2022-08-22] MEDS: Citalopram 20 MG Tab PO SCH (11:46)
[2022-08-22] MEDS: Lisinopril 10 MG Tab PO SCH (11:47)
[2022-08-22] MEDS: Pramipexole 0.25 MG Tab PO SCH (11:47)
[2022-08-22] MEDS: Febuxostat [Febuxostat] 40 MG Tablet PO SCH (11:48)
[2022-08-22] MEDS: Enoxaparin 40 MG/0.4 ML Syringe SUBCUT SCH (11:48)
[2022-08-22] MEDS: Cetirizine 10 MG Tab PO SCH (11:48)
[2022-08-22] MEDS: Morphine 2 MG/ML SYRINGE IVPUSH PRN ×2 (14:37→18:50)
[2022-08-22] MEDS: LORazepam 2 MG/ML SDV IVPUSH PRN ×2 (15:15→18:46)
== END 2022-08-22 21:40 | disposition expired | DRG 193 ==
LOC: MW.ED 13:27 → MW.ICU 17:01
PROVIDERS: ADMIT Internal Medicine; ATTEND Internal Medicine
PROC: 5A09357 Assistance with Respiratory Ventilation, Less than 24 Consecutive Hours, Continuous Positive Airway Pressure (ICD-10-PCS; principal; 2022-08-17)
PROC: 5A09357 Assistance with Respiratory Ventilation, Less than 24 Consecutive Hours, Continuous Positive Airway Pressure (ICD-10-PCS; 2022-08-22)
DX: J18.9 Pneumonia, unspecified organism (principal); I50.33 Acute on chronic diastolic (congestive) heart failure; J96.21 Acute and chronic respiratory failure with hypoxia; J96.22 Acute and chronic respiratory failure with hypercapnia; J44.0 Chronic obstructive pulmonary disease with (acute) lower respiratory infection; I13.0 Hypertensive heart and chronic kidney disease with heart failure and stage 1 through stage 4 chronic kidney disease, or unspecified chronic kidney disease; E87.0 Hyperosmolality and hypernatremia; Z68.42 Body mass index [BMI] 45.0-49.9, adult; Z51.5 Encounter for palliative care; E78.00 Pure hypercholesterolemia, unspecified; Z66 Do not resuscitate; N18.9 Chronic kidney disease, unspecified; M19.90 Unspecified osteoarthritis, unspecified site; Z20.822 Contact with and (suspected) exposure to COVID-19; M79.7 Fibromyalgia; M81.0 Age-related osteoporosis without current pathological fracture; G89.29 Other chronic pain; G25.81 Restless legs syndrome; G47.00 Insomnia, unspecified; F41.9 Anxiety disorder, unspecified; F32.A Depression, unspecified; E66.9 Obesity, unspecified; M1A.9XX0 Chronic gout, unspecified, without tophus (tophi); I48.91 Unspecified atrial fibrillation; D69.6 Thrombocytopenia, unspecified; E11.610 Type 2 diabetes mellitus with diabetic neuropathic arthropathy; D63.1 Anemia in chronic kidney disease; E03.9 Hypothyroidism, unspecified; E11.42 Type 2 diabetes mellitus with diabetic polyneuropathy; Z87.891 Personal history of nicotine dependence; G47.33 Obstructive sleep apnea (adult) (pediatric); Z98.890 Other specified postprocedural states; Z79.899 Other long term (current) drug therapy; Z79.890 Hormone replacement therapy; Z88.8 Allergy status to other drugs, medicaments and biological substances; Z88.0 Allergy status to penicillin; Z88.2 Allergy status to sulfonamides; Z87.440 Personal history of urinary (tract) infections; Z99.81 Dependence on supplemental oxygen
CPT/HCPCS: 36415; 36600; 51702; 71045; 71045-26; 80048; 80053; 80202; 82803; 83605; 83735; 83880; 84100; 84145; 84484; 85025; 86140; 87040; 87486; 87581; 87633; 87798; 93005; 93010; 94640; 94660; 94667; 96365; 99222; 99232; 99239; 99283; 99285-25; A9270-GY; J0131; J1650; J1885; J1940; J1956; J2060; J2270; J3370; J3475; J3490; J7050; J7620-GY; U0002